=== PATIENT | male | born 1960 | race American Indian/Alaskan Native ===

== ENCOUNTER 2019-09-04 08:05 | Emergency (ER) | payer MEDICARE ==
[2019-09-04 08:12] VITALS: BP 145/91
[2019-09-04] MEDS ORDERED: oxyCODONE /ACETAMINOPHEN 5-325MG TAB PO ONE (08:37)
--- NOTE | 2019-09-04 08:37 | Emergency Department Report ---
ED General Adult HPI - General Chief complaint: Extremity Injury, Lower Stated complaint: CHEST PAIN/RT LEG PAIN/BACK PAIN Time Seen by Provider: 09/04/19 08:21 Source: patient Mode of arrival: Ambulatory Limitations: No Limitations - History of Present Illness Initial comments: Mr. Melton is a 59-year-old male with history of asthma diabetes, hypertension and schizophrenia who presents with chronic right leg pain. He requests prescription for Percocet or Lortab. He also has had a ventral hernia. No bowel pain. No vomiting. No constipation.. He normally gets care at [facility]. She has chronic leg pain from a remote surgery. -: Gradual, year(s) (several) Location: abdomen, right, lower extremity Severity scale (0 -10): 10 Consistency: constant Improves with: none Worsens with: none Associated Symptoms: denies other symptoms - Related Data Home Medications Medication Instructions Recorded Confirmed Last Taken ALBUTEROL Inhaler (OR & NICU) 0.09 mg OK Q4HR 11/16/16 11/16/16 Unknown [ProAir HFA Inhaler] Aspirin [Aspirin BABY CHEW TAB] 81 mg PO QDAY 11/16/16 11/16/16 Unknown Atenolol [Tenormin] 25 mg PO DAILY 11/16/16 11/16/16 Unknown AtorvaSTATin [Lipitor] 20 mg PO QHS 11/16/16 11/16/16 Unknown Donepezil HCl 5 mg PO DAILY 11/16/16 11/16/16 Unknown Insulin Regular, Human [HumuLIN R] 1,000 unit SQ Q4HR 11/16/16 11/16/16 Unknown Loratadine [Claritin RAPDIS] 10 mg PO QDAY 11/16/16 11/16/16 Unknown Nitroglycerin [Nitrostat] 0.4 mg SL Q5M PRN 11/16/16 11/16/16 Unknown OLANZapine 5 mg PO QDAY 11/16/16 11/16/16 Unknown Promethazine [Phenergan] 25 mg PO Q6HR PRN 11/16/16 11/16/16 Unknown Venlafaxine HCl [Venlafaxine ER] 150 mg PO QDAY 11/16/16 11/16/16 Unknown Previous Rx's Medication Instructions Recorded Last Taken Type Lisinopril [Zestril TAB] 10 mg PO QDAY #30 11/19/16 Unknown Rx oxyCODONE /ACETAMINOPHEN [Percocet 1 tab PO Q6H PRN #10 tablet 11/19/16 Unknown Rx 5/325 mg] traZODone [Desyrel] 50 mg PO QHS #3 tablet 11/19/16 Unknown Rx Ibuprofen [Motrin 800 MG tab] 800 mg PO Q8HR PRN #15 tablet 09/04/19 Unknown Rx Allergies Allergy/AdvReac Type Severity Reaction Status Date / Time No Known Allergies Allergy Verified 11/16/16 18:46 ED Review of Systems ROS: Stated complaint: CHEST PAIN/RT LEG PAIN/BACK PAIN Other details as noted in HPI Comment: All other systems reviewed and negative Constitutional: denies: fever, malaise Gastrointestinal: denies: abdominal pain, nausea, vomiting Musculoskeletal: back pain (chronic) ED Past Medical Hx - Past Medical History Hx Hypertension: Yes Hx Diabetes: Yes Hx GERD: Yes Hx Psychiatric Treatment: Yes (schizophrenia) Hx Asthma: Yes - Surgical History Hx Open Heart Surgery: Yes Hx Pacemaker: Yes - Social History Smoking Status: Current Every Day Smoker - Medications Home Medications: Home Medications Medication Instructions Recorded Confirmed Last Taken Type ALBUTEROL Inhaler (OR & NICU) 0.09 mg OK Q4HR 11/16/16 11/16/16 Unknown History [ProAir HFA Inhaler] Aspirin [Aspirin BABY CHEW TAB] 81 mg PO QDAY 11/16/16 11/16/16 Unknown History Atenolol [Tenormin] 25 mg PO DAILY 11/16/16 11/16/16 Unknown History AtorvaSTATin [Lipitor] 20 mg PO QHS 11/16/16 11/16/16 Unknown History Donepezil HCl 5 mg PO DAILY 11/16/16 11/16/16 Unknown History Insulin Regular, Human [HumuLIN R] 1,000 unit SQ Q4HR 11/16/16 11/16/16 Unknown History Loratadine [Claritin RAPDIS] 10 mg PO QDAY 11/16/16 11/16/16 Unknown History Nitroglycerin [Nitrostat] 0.4 mg SL Q5M PRN 11/16/16 11/16/16 Unknown History OLANZapine 5 mg PO QDAY 11/16/16 11/16/16 Unknown History Promethazine [Phenergan] 25 mg PO Q6HR PRN 11/16/16 11/16/16 Unknown History Venlafaxine HCl [Venlafaxine ER] 150 mg PO QDAY 11/16/16 11/16/16 Unknown History Lisinopril [Zestril TAB] 10 mg PO QDAY #30 11/19/16 11/16/16 Unknown Rx oxyCODONE /ACETAMINOPHEN [Percocet 1 tab PO Q6H PRN #10 tablet 11/19/16 Unknown Rx 5/325 mg] traZODone [Desyrel] 50 mg PO QHS #3 tablet 11/19/16 Unknown Rx Ibuprofen [Motrin 800 MG tab] 800 mg PO Q8HR PRN #15 tablet 09/04/19 Unknown Rx ED Physical Exam - General Limitations: No Limitations General appearance: alert, in no apparent distress - Head Head exam: Present: atraumatic, normocephalic - Eye Eye exam: Present: normal appearance - ENT ENT exam: Present: mucous membranes moist - Neck Neck exam: Present: normal inspection - Respiratory Respiratory exam: Present: normal lung sounds bilaterally. Absent: respiratory distress, wheezes, rales, rhonchi - Cardiovascular Cardiovascular Exam: Present: regular rate, normal rhythm. Absent: systolic murmur, diastolic murmur, rubs, gallop - GI/Abdominal GI/Abdominal exam: Present: soft, normal bowel sounds. Absent: distended, tenderness, guarding, rebound - Rectal Rectal exam: Present: deferred - Extremities Exam Extremities exam: Present: normal inspection - Back Exam Back exam: Present: normal inspection - Neurological Exam Neurological exam: Present: alert, oriented X3 - Psychiatric Psychiatric exam: Present: normal affect, normal mood - Skin Skin exam: Present: warm, dry, intact, normal color. Absent: rash ED Course Vital Signs 09/04/19 08:08 Temperature 97.6 F Pulse Rate 79 Respiratory 19 Rate Blood Pressure 145/91 [Right] O2 Sat by Pulse 97 Oximetry ED Medical Decision Making - Medical Decision Making 1. Chronic leg pain: On exam he has surgical scars what appears to be a skin graft he was given Percocet in ED prescribed ibuprofen 2. Small ventral hernia without indication of incarceration strangulation obstruction. Referral to general surgeon Critical care attestation.: If time is entered above; I have spent that time in minutes in the direct care of this critically ill patient, excluding procedure time. ED Disposition Clinical Impression: Chronic leg pain, Ventral hernia Disposition: DC- TO HOME OR SELFCARE Is pt being admited?: No Does the pt Need Aspirin: No Condition: Stable Prescriptions: Ibuprofen [Motrin 800 MG tab] 800 mg PO Q8HR PRN #15 tablet PRN Reason: Pain , Severe (7-10)
== END 2019-09-04 08:52 | disposition home or self-care (01) ==
LOC: ED 08:05
DX: K43.9 Ventral hernia without obstruction or gangrene (principal); M79.604 Pain in right leg; G89.29 Other chronic pain
CPT/HCPCS: 99282

== ENCOUNTER 2019-09-07 16:20 | Emergency (ER) | payer MEDICARE ==
--- NOTE | 2019-09-07 17:07 | Event Note ---
ED Screening Note ED Screening Note: This initial assessment/diagnostic orders/clinical plan/treatment(s) is/are subject to change based on patients health status, clinical progression and re- assessment by fellow clinical providers in the ED. Further treatment and workup at subsequent clinical providers discretion. Patient/guardian urged not to elope from the ED as their condition may be serious if not clinically assessed and managed. Initial orders include: Pt states that he has significant R shoulder and R foot pain. It has been chr onic but in the last 2 days it has significantly increased.
[2019-09-07 17:08] VITALS: BP 132/78
--- NOTE | 2019-09-07 19:59 | Emergency Department Report ---
Blank Doc - Documentation Documentation: went to evaluate pt at 7:10 pm pt was not in the room, he was called by RN with no answer, his phone number was called by RN with no answer, pt was not evaluated by me.
== END 2019-09-07 19:30 ==
LOC: ED 16:20
DX: R07.89 Other chest pain (principal); Z53.21 Procedure and treatment not carried out due to patient leaving prior to being seen by health care provider

== ENCOUNTER 2019-09-08 15:21 | Emergency (ER) | payer MEDICARE ==
[2019-09-08 15:31] VITALS: BP 156/76
--- NOTE | 2019-09-08 15:31 | Emergency Department Report ---
Blank Doc - Documentation Documentation: 59-year-old male that presents with chest pains and SOB. This initial assessment/diagnostic orders/clinical plan/treatment(s) is/are subject to change based on patient's health status, clinical progression and re- assessment by fellow clinical providers in the ED. Further treatment and workup at subsequent clinical providers discretion. Patient/guardians urged not to elope from the ED as their condition may be serious if not clinically assessed and managed. Initial orders include: 1- Patient sent to MAIN ED for further evaluation and treatment 2- labs 3- EKG 4- CXR
--- NOTE | 2019-09-08 16:44 | XRay Report ---
CHEST PA AND LATERAL VIEWS INDICATION: MAIN: Chest Pain Pt. eloped yesterday. Pt. returns today with cont. complaints of SOB. . COMPARISON: None. FINDINGS: Support devices: Cardiac leads project in expected position. Heart: There has been prior CABG. Lungs/Pleura: There are mild diffuse increased reticular markings within both lungs. No consolidation is seen. No pleural effusion or pneumothorax. IMPRESSION: 1. Mild increased reticular markings are of uncertain chronicity. Mild interstitial edema could have this appearance. Signer Name: Luiz Summers MD Signed: 09/08/2019 4:40 PM Workstation Name: [id number]
== END 2019-09-08 17:10 | disposition left against medical advice (07) ==
LOC: ED 15:21
DX: R06.02 Shortness of breath (principal); I10 Essential (primary) hypertension; Z53.21 Procedure and treatment not carried out due to patient leaving prior to being seen by health care provider
CPT/HCPCS: 71046; 93005; 93010

== ENCOUNTER 2019-09-13 15:59 | Emergency (ER) | payer MEDICARE ==
--- NOTE | 2019-09-13 17:10 | Emergency Department Report ---
Blank Doc - Documentation Documentation: 59-year-old male that presents with 3 complaints: 1) chronic right foot pain and swelling after skin graft 1 year ago. Denies any new injuries or trauma. 2) Medication refill. 3) New onset of URI symptoms. This initial assessment/diagnostic orders/clinical plan/treatment(s) is/are subject to change based on patient's health status, clinical progression and re- assessment by fellow clinical providers in the ED. Further treatment and workup at subsequent clinical providers discretion. Patient/guardians urged not to elope from the ED as their condition may be serious if not clinically assessed and managed. Initial orders include: 1- Patient sent to [facility] for further evaluation and treatment 2- CXR
--- NOTE | 2019-09-13 17:47 | XRay Report ---
CHEST 2 VIEWS INDICATION / CLINICAL INFORMATION: cough. COMPARISON: 09/08/2019 FINDINGS: SUPPORT DEVICES: Pacemaker appears unchanged HEART / MEDIASTINUM: Changes of median sternotomy are noted LUNGS / PLEURA: There is patchy airspace opacity noted in both lung bases. .No pneumothorax. ADDITIONAL FINDINGS: No significant additional findings. IMPRESSION: 1. There is mild patchy airspace opacity in the lung bases which could represent atelectasis or an ev olving pneumonia Signer Name: Akshat Sanchez MD Signed: 09/13/2019 5:42 PM Workstation Name: [id number]
--- NOTE | 2019-09-13 22:59 | Emergency Department Report ---
ED General Adult HPI - General Chief complaint: Medical Clearance Stated complaint: RT FOOT SWELLING PAIN/CHEST COLD Time Seen by Provider: 09/13/19 17:05 Source: patient Mode of arrival: Ambulatory Limitations: No Limitations - Related Data Home Medications Medication Instructions Recorded Confirmed Last Taken ALBUTEROL Inhaler (OR & NICU) 0.09 mg DE Q4HR 11/16/16 11/16/16 Unknown [ProAir HFA Inhaler] Aspirin [Aspirin BABY CHEW TAB] 81 mg PO QDAY 11/16/16 11/16/16 Unknown Atenolol [Tenormin] 25 mg PO DAILY 11/16/16 11/16/16 Unknown AtorvaSTATin [Lipitor] 20 mg PO QHS 11/16/16 11/16/16 Unknown Donepezil HCl 5 mg PO DAILY 11/16/16 11/16/16 Unknown Insulin Regular, Human [HumuLIN R] 1,000 unit SQ Q4HR 11/16/16 11/16/16 Unknown Loratadine [Claritin RAPDIS] 10 mg PO QDAY 11/16/16 11/16/16 Unknown Nitroglycerin [Nitrostat] 0.4 mg SL Q5M PRN 11/16/16 11/16/16 Unknown OLANZapine 5 mg PO QDAY 11/16/16 11/16/16 Unknown Promethazine [Phenergan] 25 mg PO Q6HR PRN 11/16/16 11/16/16 Unknown Venlafaxine HCl [Venlafaxine ER] 150 mg PO QDAY 11/16/16 11/16/16 Unknown Previous Rx's Medication Instructions Recorded Last Taken Type Lisinopril [Zestril TAB] 10 mg PO QDAY #30 11/19/16 Unknown Rx oxyCODONE /ACETAMINOPHEN [Percocet 1 tab PO Q6H PRN #10 tablet 11/19/16 Unknown Rx 5/325 mg] traZODone [Desyrel] 50 mg PO QHS #3 tablet 11/19/16 Unknown Rx Ibuprofen [Motrin 800 MG tab] 800 mg PO Q8HR PRN #15 tablet 09/04/19 Unknown Rx ALBUTEROL Inhaler (OR & NICU) 1 puff IH Q4-6H PRN #1 inha 09/13/19 Unknown Rx [ProAir HFA Inhaler] Atenolol [Tenormin] 25 mg PO DAILY #14 tab 10/21/19 Unknown Rx Azithromycin [Zithromax] 500 mg PO QDAY #3 tablet 09/13/19 Unknown Rx Ketorolac [Toradol] 10 mg PO Q6H PRN #15 tablet 09/13/19 Unknown Rx Lisinopril [Zestril TAB] 10 mg PO QDAY #14 tablet 09/13/19 Unknown Rx Allergies Allergy/AdvReac Type Severity Reaction Status Date / Time No Known Allergies Allergy Verified 11/16/16 18:46 ED Review of Systems ROS: Stated complaint: RT FOOT SWELLING PAIN/CHEST COLD Other details as noted in HPI Comment: All other systems reviewed and negative ED Past Medical Hx - Past Medical History Previous Medical History?: Yes Hx Hypertension: Yes Hx CVA: No Hx Heart Attack/AMI: No Hx Congestive Heart Failure: No Hx Diabetes: Yes Hx Deep Vein Thrombosis: No Hx Pulmonary Embolism: No Hx GERD: Yes Hx Liver Disease: No Hx Renal Disease: No Hx Sickle Cell Disease: No Hx Arthritis: No Hx Headaches / Migraines: No Hx Seizures: No Hx Kidney Stones: No Hx Psychiatric Treatment: Yes (schizophrenia) Hx Asthma: No Hx COPD: No Hx Tuberculosis: No Hx Dementia: No Hx HIV: No - Surgical History Past Surgical History?: Yes Hx Coronary Stent: No Hx Open Heart Surgery: Yes Hx Pacemaker: Yes Hx Internal Defibrillator: No Hx Cholecystectomy: No Hx Appendectomy: No Hx Breast Surgery: No - Social History Smoking Status: Former Smoker Substance Use Type: None - Medications Home Medications: Home Medications Medication Instructions Recorded Confirmed Last Taken Type ALBUTEROL Inhaler (OR & NICU) 0.09 mg DE Q4HR 11/16/16 11/16/16 Unknown History [ProAir HFA Inhaler] Aspirin [Aspirin BABY CHEW TAB] 81 mg PO QDAY 11/16/16 11/16/16 Unknown History Atenolol [Tenormin] 25 mg PO DAILY 11/16/16 11/16/16 Unknown History AtorvaSTATin [Lipitor] 20 mg PO QHS 11/16/16 11/16/16 Unknown History Donepezil HCl 5 mg PO DAILY 11/16/16 11/16/16 Unknown History Insulin Regular, Human [HumuLIN R] 1,000 unit SQ Q4HR 11/16/16 11/16/16 Unknown History Loratadine [Claritin RAPDIS] 10 mg PO QDAY 11/16/16 11/16/16 Unknown History Nitroglycerin [Nitrostat] 0.4 mg SL Q5M PRN 11/16/16 11/16/16 Unknown History OLANZapine 5 mg PO QDAY 11/16/16 11/16/16 Unknown History Promethazine [Phenergan] 25 mg PO Q6HR PRN 11/16/16 11/16/16 Unknown History Venlafaxine HCl [Venlafaxine ER] 150 mg PO QDAY 11/16/16 11/16/16 Unknown Histor y Lisinopril [Zestril TAB] 10 mg PO QDAY #30 11/19/16 11/16/16 Unknown Rx oxyCODONE /ACETAMINOPHEN [Percocet 1 tab PO Q6H PRN #10 tablet 11/19/16 Unknown Rx 5/325 mg] traZODone [Desyrel] 50 mg PO QHS #3 tablet 11/19/16 Unknown Rx Ibuprofen [Motrin 800 MG tab] 800 mg PO Q8HR PRN #15 tablet 09/04/19 Unknown Rx ALBUTEROL Inhaler (OR & NICU) 1 puff IH Q4-6H PRN #1 inha 09/13/19 Unknown Rx [ProAir HFA Inhaler] Atenolol [Tenormin] 25 mg PO DAILY #14 tab 09/13/19 Unknown Rx Azithromycin [Zithromax] 500 mg PO QDAY #3 tablet 09/13/19 Unknown Rx Ketorolac [Toradol] 10 mg PO Q6H PRN #15 tablet 09/13/19 Unknown Rx Lisinopril [Zestril TAB] 10 mg PO QDAY #14 tablet 09/13/19 Unknown Rx ED Physical Exam - General Limitations: No Limitations General appearance: alert, in no apparent distress - Head Head exam: Present: atraumatic, normocephalic - Eye Eye exam: Present: normal appearance, PERRL, EOMI Pupils: Present: normal accommodation - ENT ENT exam: Present: normal exam, normal orophraynx, mucous membranes moist, TM's normal bilaterally - Neck Neck exam: Present: normal inspection. Absent: meningismus, thyromegaly - Respiratory Respiratory exam: Present: normal lung sounds bilaterally. Absent: respiratory distress, wheezes, rales, rhonchi, stridor, decreased breath sounds, prolonged expiratory - Cardiovascular Cardiovascular Exam: Present: regular rate, normal rhythm. Absent: systolic murmur, diastolic murmur, rubs, gallop - GI/Abdominal GI/Abdominal exam: Present: soft, normal bowel sounds, hernia (ventral hernia) - Rectal Rectal exam: Present: deferred - Extremities Exam Extremities exam: Present: normal inspection, pedal edema (2+ pitting edema to the right lower extremity pulses 2+ no cyanosis no clubbing. Dermatitis rashes noted) - Back Exam Back exam: Present: normal inspection. Absent: CVA tenderness (R), CVA tenderness (L) - Neurological Exam Neurological exam: Present: alert, oriented X3, CN II-XII intact, normal gait - Psychiatric Psychiatric exam: Present: normal affect, normal mood. Absent: flat affect, homicidal ideation - Skin Skin exam: Present: warm, dry, intact, normal color, other (venous stasis dermatitis of the right lower extremity.). Absent: rash, cyanosis, diaphoretic ED Course Vital Signs 09/13/19 16:29 Temperature 99.2 F Pulse Rate 79 Respiratory 16 Rate Blood Pressure 149/76 O2 Sat by Pulse 100 Oximetry ED Medical Decision Making - Radiology Data Radiology results: report reviewed Mild patchy airspace opacity involving to the bilateral lung bases representing atelectasis or an evolving pneumonia - Medical Decision Making 15-year-old obese -[place] male with chronic pain, chronic right lower extremity edema due to previous injury and pulse surgical side effects requesting a medication refill of his Percocet, blood pressure medication, and inhaler. Reports no chest pain palpitations no shortness of breath and has had a cough that has been producing clear mucus without wheezing some throat irritation off and on. He requested antibiotic stable and he's had these cold symptoms for about one week. Chest x-ray found what may be an evolving pneumonia. He is ambulatory with no respiratory distress speaks in full sentences and afebrile Also had questions in regards to his ventral hernia although he needs to see a discussed with him following up with G versus general surgery and the information was provided his discharge summary. He is ambulatory in no acute distress speaking in full sentences. Critical care attestation.: If time is entered above; I have spent that time in minutes in the direct care of this critically ill patient, excluding procedure time. ED Disposition Clinical Impression: Medication refill, Chronic pain, Ventral hernia Disposition: DC- TO HOME OR SELFCARE Is pt being admited?: No Does the pt Need Aspirin: No Condition: Stable Instructions: Ventral Hernia (ED), Chronic Hypertension (ED), Cold Symptoms (ED) Prescriptions: ALBUTEROL Inhaler (OR & NICU) [ProAir HFA Inhaler] 1 puff IH Q4-6H PRN #1 inha PRN Reason: Cough Atenolol [Tenormin] 25 mg PO DAILY #14 tab Ketorolac [Toradol] 10 mg PO Q6H PRN #15 tablet PRN Reason: Pain Lisinopril [Zestril TAB] 10 mg PO QDAY #14 tablet Azithromycin [Zithromax] 500 mg PO QDAY #3 tablet Referrals: PRIMARY CARE, [Primary Care Provider] - 3-5 Days [facility] [Provider Group] - 3-5 Days CLEVE COOPER DO [Staff Physician] - 3-5 Days
[2019-09-13 23:31] VITALS: BP 194/103
== END 2019-09-13 23:31 | disposition home or self-care (01) ==
LOC: ED 15:59
DX: K43.9 Ventral hernia without obstruction or gangrene (principal); M79.604 Pain in right leg; G89.29 Other chronic pain; Z76.0 Encounter for issue of repeat prescription; I10 Essential (primary) hypertension; E11.9 Type 2 diabetes mellitus without complications; K21.9 Gastro-esophageal reflux disease without esophagitis; F20.9 Schizophrenia, unspecified; Z87.891 Personal history of nicotine dependence; Z79.899 Other long term (current) drug therapy; Z98.890 Other specified postprocedural states
CPT/HCPCS: 71046; 93005; 93010

== ENCOUNTER 2019-09-20 18:09 | Outpatient (CLI) | payer MEDICARE ==
--- NOTE | 2019-09-20 19:53 | XRay Report ---
RIGHT FOOT 3 VIEWS INDICATION / CLINICAL INFORMATION: Right foot pain. COMPARISON: None available. FINDINGS: BONES / JOINT(S): There is a small plantar calcaneal spur. There is mild hallux valgus. There are mil d associated degenerative changes involving the first metatarsophalangeal joint. I see no evidence of fracture, dislocation or destructive lesion. SOFT TISSUES: No significant abnormality. ADDITIONAL FINDINGS: None. Signer Name: Deo Prado MD Signed: 09/20/2019 7:49 PM Workstation Name: [id number]
--- NOTE | 2019-09-20 19:56 | XRay Report ---
AP STANDING VIEWS OF BOTH KNEES 1 VIEW INDICATION / CLINICAL INFORMATION: PAIN BOTH KNEES COMPARISON: None available. FINDINGS: BONES / JOINT(S): There is slight narrowing involving both medial tibiofemoral joints without signifi cant hypertrophic change. There is no evidence of fracture, subluxation, destructive lesion or other abnormality. SOFT TISSUES: No significant abnormality. ADDITIONAL FINDINGS: None. Signer Name: Deo Prado MD Signed: 09/20/2019 7:52 PM Workstation Name: [id number]
== END 2019-09-20 18:10 | disposition home or self-care (01) ==
LOC: XRAY 18:09
PROVIDERS: ATTEND Orthopaedic Surgery
DX: M19.071 Primary osteoarthritis, right ankle and foot (principal); M25.561 Pain in right knee; M25.562 Pain in left knee; Z87.891 Personal history of nicotine dependence
CPT/HCPCS: 73565

== ENCOUNTER 2019-09-22 16:35 | Outpatient (CLI) | payer MEDICARE ==
--- NOTE | 2019-09-22 17:54 | XRay Report ---
LUMBAR SPINE 5 VIEWS. INDICATION / CLINICAL INFORMATION: LOW BACK PAIN COMPARISON: None available. FINDINGS: BONES / JOINT(S): No acute fracture or subluxation. Moderate DDD localized at L5-S1. Mild DDD L4-L5. SOFT TISSUES: No significant abnormality. ADDITIONAL FINDINGS: IVC filter to the right of midline at L3. RIGHT TIBIA AND FIBULA 2 VIEWS INDICATION / CLINICAL INFORMATION: LOW BACK PAIN COMPARISON: None available. FINDINGS: BONES / JOINT(S): No acute fracture or subluxation. No significant arthritis. SOFT TISSUES: No significant abnormality. ADDITIONAL FINDINGS: None. Signer Name: Tito Owen MD Signed: 09/22/2019 5:50 PM Workstation Name: [id number]
== END 2019-09-22 16:36 | disposition home or self-care (01) ==
LOC: XRAY 16:35
PROVIDERS: ATTEND Orthopaedic Surgery
DX: M51.37 Other intervertebral disc degeneration, lumbosacral region (principal); M79.604 Pain in right leg; M79.671 Pain in right foot; M25.569 Pain in unspecified knee; I10 Essential (primary) hypertension; K21.9 Gastro-esophageal reflux disease without esophagitis; Z87.891 Personal history of nicotine dependence
CPT/HCPCS: 72110

== ENCOUNTER 2019-10-12 14:01 | Emergency (ER) | payer MEDICARE ==
[2019-10-12 14:40] VITALS: BP 128/70
--- NOTE | 2019-10-12 14:56 | Emergency Department Report ---
Chief Complaint: Upper Respiratory Infection Stated Complaint: MED REFILL Time Seen by Provider: 10/12/19 14:51 - HPI History of Present Illness: 59 y/o male comes in for medication refill and reports that he has a cold for 2 months. He has a PCP appt October. Keep asking for a refill on his nerve pills. - Exam Vital Signs: Vital Signs 10/12/19 14:06 Temperature 98.1 F Pulse Rate 67 Respiratory 18 Rate Blood Pressure 128/70 O2 Sat by Pulse 95 Oximetry Physical Exam: A x O times 3. Taking in complete sentence. Ambulating with a cane. MSE screening note: Patient is to follow up with his PCP. ED Disposition for MSE Condition: Stable
== END 2019-10-12 15:05 | disposition left against medical advice (07) ==
LOC: ED 14:01
DX: J00 Acute nasopharyngitis [common cold] (principal); Z76.0 Encounter for issue of repeat prescription

== ENCOUNTER 2019-10-19 09:59 | Outpatient (CLI) | payer MEDICARE ==
[2019-10-19 11:22] LABS: Blood Urea Nitrogen 13 mg/dL (9-20)
--- NOTE | 2019-10-19 13:49 | Cat Scan Report ---
CT ABDOMEN AND PELVIS WITH CONTRAST INDICATION / CLINICAL INFORMATION: K46.9 UNSPECIFIED ABDOMINAL HERNIA WITHOUT OBSTRUCTION OR GANGREN. TECHNIQUE: Axial CT images were obtained through the abdomen and pelvis after 100 cc Omnipaque 300 milligrams pe rcent IV contrast. All CT scans at this location are performed using CT dose reduction for ALARA by means of automated exposure control. COMPARISON: None available. FINDINGS: LOWER CHEST: Minimum pleural thickening on the right. Small hiatal hernia is present LIVER: No significant abnormality. GALLBLADDER: No significant abnormality. BILE DUCTS: No significant abnormality. PANCREAS: No significant abnormality. SPLEEN: No significant abnormality. ADRENALS: No significant abnormality. RIGHT KIDNEY and URETER: No significant abnormality. LEFT KIDNEY and URETER: No significant abnormality. STOMACH and SMALL BOWEL: No significant abnormality. COLON: Diverticuli scattered throughout the colon APPENDIX: No significant abnormality. PERITONEUM: A small ventral wall defects present midline without evidence of herniation of gastrointe stinal contents. No free fluid. No free air. No fluid collection. LYMPH NODES: No significant adenopathy. AORTA and ARTERIES: No significant abnormality. IVC and VEINS: IVC filter in place. No significant abnormality. URINARY BLADDER: No significant abnormality. REPRODUCTIVE ORGANS: No significant abnormality. ADDITIONAL FINDINGS: None. SKELETAL SYSTEM: No significant abnormality. IMPRESSION: 1. Small ventral wall defect. 2. Diverticulosis of the colon 3. Small hiatal hernia Signer Name: Christofer Kwok MD Signed: 10/19/2019 1:45 PM Workstation Name: [id number]
== END 2019-10-19 10:00 | disposition home or self-care (01) ==
LOC: CT 09:59
PROVIDERS: ATTEND Surgery
DX: K46.9 Unspecified abdominal hernia without obstruction or gangrene (principal); K57.30 Diverticulosis of large intestine without perforation or abscess without bleeding
CPT/HCPCS: 36415; 74177; 82565; 84520; Q9967